=== PATIENT | male | born 1980 | race Two or more races ===

== ENCOUNTER 2017-01-03 20:51 | Emergency (ER) | payer MEDICAID ==
[~2017-01-03] VITALS: Ht 167.6 cm; Wt 104.3 kg
[2017-01-03 21:09] VITALS: BP 141/73
[2017-01-04] MEDS ORDERED: HYDROcodone-ACET 10/325MG TAB PO ONE
== END 2017-01-03 23:57 | disposition home or self-care (01) ==
LOC: ER 20:55
DX: G89.29 Other chronic pain (principal); M25.571 Pain in right ankle and joints of right foot; Z88.0 Allergy status to penicillin
CPT/HCPCS: 73610

== ENCOUNTER 2017-10-29 22:06 | Emergency (ER) | payer MEDICAID ==
[~2017-10-29] VITALS: Ht 167.6 cm; Wt 111.1 kg
[2017-10-29 22:32] VITALS: BP 141/86
[2017-10-30] MEDS ORDERED: KETOROLAC TROMETH 60MG/2ML VIAL IM ONE ×2 (00:28→00:30)
[2017-10-30] MEDS ORDERED: HYDROcodone-ACET 10/325MG TAB ONE (00:28)
[2017-10-30] MEDS ORDERED: HYDROcodone-ACET 10/325MG TAB PO ONE (00:30)
== END 2017-10-30 01:52 | disposition home or self-care (01) ==
LOC: ER 22:06
DX: M54.5 Low back pain (principal); M79.1 Myalgia; Z88.0 Allergy status to penicillin
CPT/HCPCS: 96372; 99283; J1885

== ENCOUNTER 2019-04-30 09:48 | Emergency (ER) | payer MEDICAID ==
[~2019-04-30] VITALS: Ht 167.6 cm; Wt 122.5 kg
[2019-04-30 11:50] VITALS: BP 129/86
== END 2019-04-30 11:55 | disposition home or self-care (01) ==
LOC: ER 09:59
DX: M62.838 Other muscle spasm (principal); M54.2 Cervicalgia; M25.511 Pain in right shoulder; Z88.0 Allergy status to penicillin

== ENCOUNTER 2019-10-10 08:40 | Emergency (ER) | payer MEDICAID ==
[~2019-10-10] VITALS: Ht 167.6 cm; Wt 122.5 kg
[2019-10-10 08:47] VITALS: BP 143/86
[2019-10-10] MEDS ORDERED: KETOROLAC TROMETH 60MG/2ML VIAL IM ONE (09:30)
[2019-10-10] MEDS ORDERED: diazePAM 5 MG TAB PO ONE (09:30)
== END 2019-10-10 09:51 | disposition home or self-care (01) ==
LOC: ER 08:40
DX: M54.5 Low back pain (principal); G89.29 Other chronic pain; Z88.0 Allergy status to penicillin
CPT/HCPCS: 96372; 99283; J1885

== ENCOUNTER 2020-02-25 23:28 | Emergency (ER) | payer MEDICAID ==
[~2020-02-25] VITALS: Ht 167.6 cm; Wt 122.5 kg
[2020-02-26] MEDS ORDERED: AZITHROMYCIN 250 MG TAB PO ONE (00:15)
[2020-02-26 00:17] LABS: Urine Bacteria MOD /hpf (None Seen); Urine Blood 2+ /uL (Negative); Urine Mucus FEW (None Seen); Urine Specific Gravity 1.037 (1.001-1.035); Urine WBC 810 /hpf (0 - 3)
[2020-02-26] MEDS ORDERED: LIDOCAINE HCL 2% TOP JELLY 5ML TOP ONE (00:45)
[2020-02-26] MEDS ORDERED: KETOROLAC TROMETH 60MG/2ML VIAL IM ONE (00:45)
[2020-02-26 02:04] VITALS: BP 134/80
== END 2020-02-26 02:06 | disposition home or self-care (01) ==
LOC: ER 23:30
DX: N39.0 Urinary tract infection, site not specified (principal); N47.2 Paraphimosis
CPT/HCPCS: 81001; 96372; 99283; J1885

== ENCOUNTER 2021-10-24 08:07 | Emergency (ER) | payer MEDICAID ==
[~2021-10-24] VITALS: Ht 167.6 cm; Wt 113.4 kg
[2021-10-24 08:27] VITALS: BP 135/79
[2021-10-24] MEDS ORDERED: CLIN300C8 PO (08:40)
[2021-10-24] MEDS ORDERED: TETANUS-DIPTH-ACEL PERTUSSIS 0.5ML SYR Tdap IM ONE (08:45)
== END 2021-10-24 08:58 | disposition home or self-care (01) ==
LOC: ER 08:07
DX: S61.230A Puncture wound without foreign body of right index finger without damage to nail, initial encounter (principal); F12.10 Cannabis abuse, uncomplicated; W22.8XXA Striking against or struck by other objects, initial encounter; Y93.89 Activity, other specified; Y92.89 Other specified places as the place of occurrence of the external cause; Y99.8 Other external cause status
CPT/HCPCS: 90471; 90715

== ENCOUNTER 2022-06-30 17:39 | Emergency (ER) | payer MEDICAID ==
[~2022-06-30] VITALS: Ht 167.6 cm; Wt 122.8 kg
[~2022-06-30 17:39] MED LIST: CLIN300C8 PO
[2022-06-30 18:10] VITALS: BP 137/74
[2022-06-30 18:49] LABS: Basophils # (auto) 0.1 10 ^3/uL (0-0.2); Eosinophils # (auto) 0.3 10 ^3/uL (0-0.8); Eosinophils % (auto) 2.9 % (0.0-7.0); Hemoglobin 16.2 g/dL (13.5-17.5); Lymphocytes # (auto) 2.8 10 ^3/uL (0.4-5.4); Lymphocytes % (auto) 23.6 % (10.0-50.0); Mean Corpuscular Hemoglobin 28.8 pg (28.0-32.0); Mean Corpuscular Hgb Conc. 33.1 g/dL (32.0-36.0); Monocytes # (auto) 0.9 10 ^3/uL (0-1.3); Monocytes % (auto) 7.8 % (0.0-12.0); Neutrophils # (auto) 7.7 10 ^3/uL (1.6-8.6); Neutrophils % (auto) 64.7 % (37.0-80.0); Nucleated Red Blood Cells % 0.1 %; Red Blood Cells 5.63 10^6/uL (4.5-5.90); White Blood Cell 11.9 10^3/uL (4.4-10.8)
[2022-06-30 18:53] LABS: Albumin 3.9 g/dL (3.4-5.0); BUN/Creatinine Ratio 13.4; Calcium 9.1 mg/dL (8.5-10.1); Potassium 4.3 mmol/L (3.5-5.1)
[2022-06-30 19:02] LABS: Bilirubin, Total 0.3 mg/dL (0.2-1.0); Total Protein 8.3 g/dL (6.4-8.2)
[2022-06-30 20:00] LABS: Urine Bacteria NONE SEEN /hpf (None Seen); Urine Blood Negative /uL (Negative); Urine Mucus FEW (None Seen); Urine Specific Gravity 1.029 (1.001-1.035); Urine WBC 1 /hpf (0 - 3)
[2022-06-30 20:11] LABS: Amphetamine Screen, Urine NEGATIVE (NEGATIVE); Barbiturate Scree,Urine NEGATIVE (NEGATIVE); Benzodiazephine Screen, Urine NEGATIVE (NEGATIVE); Cannabinoid Screen, Urine POSITIVE (NEGATIVE); Cocaine Screen, Urine NEGATIVE (NEGATIVE)
[2022-06-30 20:19] LABS: Opiate Scree,Urine NEGATIVE (NEGATIVE); Phencyclidine Screen, Urine NEGATIVE (NEGATIVE)
== END 2022-06-30 21:34 | disposition home or self-care (01) ==
LOC: ER 17:39
DX: K80.20 Calculus of gallbladder without cholecystitis without obstruction (principal); Z88.1 Allergy status to other antibiotic agents; Z79.899 Other long term (current) drug therapy
CPT/HCPCS: 36415; 74176; 80053; 80307; 81001; 83605; 83690; 85025

== ENCOUNTER 2024-07-12 08:15 | Emergency (ER) | payer OTHER, MEDICAID ==
[~2024-07-12] VITALS: Ht 167.6 cm; Wt 112.2 kg
[~2024-07-12 08:15] MED LIST changes: +CLIN1CAP70 PO; -CLIN300C8 PO
[2024-07-12 09:38] VITALS: BP 145/88; PULSE 75; RESP 18; TEMP 97.2; O2SAT 96
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
[2024-07-12] MEDS ORDERED: IBUP-1456 PO (10:26)
[2024-07-12] MEDS ORDERED: BACL10TA PO (10:26)
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
[2024-07-12] MEDS: HYDROcodone-ACET 5/325MG TAB PO ONE (10:40)
== END 2024-07-12 10:46 | disposition home or self-care (01) ==
LOC: ER 08:15
DX: S16.1XXA Strain of muscle, fascia and tendon at neck level, initial encounter (principal); S39.012A Strain of muscle, fascia and tendon of lower back, initial encounter; Z79.899 Other long term (current) drug therapy; Z88.0 Allergy status to penicillin; V89.2XXA Person injured in unspecified motor-vehicle accident, traffic, initial encounter; Y93.I9 Activity, other involving external motion; Y92.488 Other paved roadways as the place of occurrence of the external cause; Y99.8 Other external cause status
CPT/HCPCS: 72040; 72100